=== PATIENT | male | born 1980 | race African-American/Black ===

== ENCOUNTER 2022-02-03 03:17 | Emergency (ER) | payer OTHER ==
[~2022-02-03] VITALS: Ht 152.4 cm; Wt 92.0 kg
[2022-02-03 04:20] LABS: Basophils # (auto) 0 10 ^3/uL (0-0.2); Basophils % (auto) 0.6 % (0.0-2.0); Eosinophils # (auto) 0.1 10 ^3/uL (0-0.8); Hemoglobin 15.1 g/dL (13.5-17.5); Monocytes # (auto) 0.5 10 ^3/uL (0-1.3); Nucleated Red Blood Cells % 0.2 %; White Blood Cell 4.2 10^3/uL (4.4-10.8)
[2022-02-03 04:24] LABS: Eosinophils % (auto) 2.6 % (0.0-7.0); Hematocrit 45.4 % (41.0-53.0); Lymphocytes # (auto) 1.7 10 ^3/uL (0.4-5.4); Lymphocytes % (auto) 40.2 % (10.0-50.0); Mean Corpuscular Hemoglobin 26.6 pg (28.0-32.0); Mean Corpuscular Hgb Conc. 33.2 g/dL (32.0-36.0); Mean Corpuscular Volume 80.1 fL (80.0-100.0); Monocytes % (auto) 11.7 % (0.0-12.0); Neutrophils # (auto) 1.9 10 ^3/uL (1.6-8.6); Neutrophils % (auto) 44.9 % (37.0-80.0); Red Blood Cells 5.67 10^6/uL (4.5-5.90); Red Cell Distribution Width 13.7 % (11.8-14.3)
[2022-02-03 04:52] LABS: Albumin 3.8 g/dL (3.4-5.0); BUN/Creatinine Ratio 21.6; Calcium 8.4 mg/dL (8.5-10.1); Potassium 3.6 mmol/L (3.5-5.1)
[2022-02-03 04:54] LABS: Total Protein 6.7 g/dL (6.4-8.2)
[2022-02-03] MEDS ORDERED: LACTATED RINGER'S 1,000 ML IV ONE (06:45)
[2022-02-03] MEDS ORDERED: ALBU108A5 IN (07:29)
[2022-02-03] MEDS ORDERED: DexAMETHasone SOD PHOS 10MG/1ML VIAL INJ IV ONE (07:30)
[2022-02-03 10:00] VITALS: BP 100/66
== END 2022-02-03 10:31 | disposition home or self-care (01) ==
LOC: ER 03:17
DX: R07.89 Other chest pain (principal); E87.6 Hypokalemia; N17.9 Acute kidney failure, unspecified; I10 Essential (primary) hypertension
CPT/HCPCS: 36415; 80053; 83880; 84484; 85025; 93005; 96361; 96374; 99285; J1100